=== PATIENT | female | born 1940 | race Caucasian/White ===

== ENCOUNTER 2017-02-07 16:39 | Emergency (ER) | payer MEDICARE ==
[2017-02-07 16:57] VITALS: BP 131/76
--- NOTE | 2017-02-07 17:53 | UC ---
Respiratory Complaint HPI - HPI Summary HPI Summary: 5 day history of non-productive cough, with a sense of phlegm that she cannot expectorate. Began several days post travel, without associated fever, headache , chest pain, dyspnea, headache or systemic illness. Not disruptive of sleep--actually not coughing at night. Does have a hx of chronic post nasal drainage, and uses a neti pot. Remote smoking history, stopped about 38 years ago. - History of Current Complaint Chief Complaint: UCGeneralIllness Stated Complaint: CONGESTION/COUGH Time Seen by Provider: 02/07/17 17:30 Hx Obtained From: Patient Onset/Duration: Gradual Onset, Lasting Days - 5 Timing: Intermittent Episodes - can last minutes, but not to the point of vomiting or incontinence. Severity Initially: Moderate Severity Currently: Moderate Character: Cough: Nonproductive Aggravating Factors: Nothing Alleviating Factors: Nothing Associated Signs And Symptoms: Positive: Negative - Risk Factors Pulmonary Embolism Risk Factors: Negative Cardiac Risk Factors: Hypertension Pseudomonas Risk Factors: Negative Tuberculosis Risk Factors: Negative - Allergies/Home Medications Allergies/Adverse Reactions: Allergies Allergy/AdvReac Type Severity Reaction Status Date / Time Penicillins Allergy Unknown Verified 02/07/17 16:47 Reaction Details Sulfa Antibiotics Allergy Rash Verified 09/21/16 15:07 environmental, foods Allergy Unknown Uncoded 09/21/16 15:07 Reaction Details Home Medications: Home Medications Furosemide TAB* [Lasix TAB*] 20 mg PO DAILY PRN 02/07/17 [History Confirmed ] PMH/Surg Hx/FS Hx/Imm Hx Cardiovascular History Of: Reports: Cardiac Disorders - Afib Comment Only: Hypertension - takes med for A Fib - Surgical History Surgical History: Yes Surgery Procedure, Year, and Place: partial hysterectomy, back, L shoulder, R foot, right knee total arthroplasty - Family History Known Family History: Positive: Respiratory Disease - mother had COPD - Social History Occupation: Retired Lives: Alone - Alcohol Use: Rare Substance Use Type: None Smoking Status (MU): Former Smoker When Did the Patient Quit Smoking/Using Tobacco: 1987 - Immunization History Most Recent Influenza Vaccination: 08/2016 Most Recent Pneumonia Vaccination: Fall 2015 Review of Systems Constitutional: Negative Skin: Negative Eyes: Negative ENT: Negative Respiratory: Cough Cardiovascular: Other - hx of a fib, well-controlled. Gastrointestinal: Negative Genitourinary: Negative Motor: Negative Neurovascular: Negative Musculoskeletal: Negative Neurological: Negative Psychological: Negative All Other Systems Reviewed And Are Negative: Yes Physical Exam Triage Information Reviewed: Yes Appearance: Well-Appearing Vital Signs: Initial Vital Signs Temp 97.3 F 02/07/17 16:51 Pulse 82 02/07/17 16:51 Resp 20 02/07/17 16:51 BP 131/76 02/07/17 16:51 Pulse Ox 96 02/07/17 16:51 Vital Signs Reviewed: Yes Eye Exam: Normal ENT: Positive: Pharyngeal erythema - and drainage Neck: Positive: No Lymphadenopathy Respiratory: Positive: Normal breath sounds, No respiratory distress Cardiovascular: Positive: RRR, No Murmur Psychological Exam: Normal Skin Exam: Normal UC Diagnostic Evaluation - Laboratory O2 Sat by Pulse Oximetry: 96 Respiratory Course/Dx - Course Course Of Treatment: symptomatic treatment with guiafensin and continued nasal cleansing. --discussed course of oral steroids. --reviewed no indication for xray, but if cough persists x 3 weeks, she should follow up. - Differential Dx/Diagnosis Differential Diagnosis/HQI/PQRI: Aspiration, Asthma, Laryngitis Provider Diagnoses: viral cough Discharge - Discharge Plan Condition: Stable Disposition: HOME Patient Education Materials: Acute Cough (ED) Additional Instructions: As discussed, you do not have evidence of bacterial infection. For now, begin use of guaifensin (mucinex) 600mg twice daily to promote expectoration. If the cough persists, you must follow up to consider imaging studies, but it is not uncommon for a cough to persist for 2 to 3 weeks.
== END 2017-02-07 18:16 | disposition home or self-care (01) ==
LOC: UCCORT 16:39
DX: R05 Cough (principal); I48.91 Unspecified atrial fibrillation; I10 Essential (primary) hypertension; Z88.0 Allergy status to penicillin; Z88.2 Allergy status to sulfonamides; Z87.891 Personal history of nicotine dependence
CPT/HCPCS: 99212; G0463

== ENCOUNTER 2018-12-25 14:41 | Emergency (ER) | payer MEDICARE ==
--- OUTSIDE RECORDS SUMMARY | 2018-12-25 15:27 | XMS REPORT | Continuity of Care Document ---
:1940 External Reference #:[id number] Author Name Bonita Armendariz, MSN, TEST CONDUCTOR Address [address] [place] [address] Care Team Providers Name Role Phone Ebony Abreu MD Care Team Information Track Worker Unavailable Ebony Abreu MD Primary Care Physician Unavailable Payers Type Date Identification Numbers Payment Provider Subscriber Effective: Policy Number: [id number] Medicare Abhishek Cadet 2003 PayID: [id number] [address] [place] [address] Policy Number: [id number] [facility] Abhishek Cadet PayID: [id number] [address] [place] [address] Advance Directives Description No Information Available Problems Date Description Provider Status Onset: 10/09/2018 Long-term current use of Attila Rosales M.D., Active anticoagulant [facility] Onset: 04/23/2016 Pain, unspecified Attila Rosales M.D., Active [facility] Onset: 04/23/2016 Malaise and fatigue Attila Rosales M.D., Active [facility] Onset: 09/05/2015 Dyspnea Attila Rosales M.D., Active [facility] Onset: 08/24/2015 Chronic atrial fibrillation Bonita Armendariz, Active MSN, TEST CONDUCTOR Onset: 01/19/2014 Transient cerebral ischemia Attila Rosales M.D., Active [facility] Onset: 02/06/2012 Hyperlipidemia Attila Rosales M.D., Active [facility] Onset: 02/06/2012 Atrial fibrillation Attila Rosales M.D., Active [facility] Family History Date Family Member(s) Problem(s) Comments : (age 82 Father due to CVA Years) Mother due to CAD () - was told by routine ECG in her 60s that she had an HI Number of Children 2 living & well Number of Siblings Siblings: 3 living & well Social History Type Date Description Comments Sex Unknown Marital Status lives alone Lives With Negative For Alone Diet Patient is on a low fat diet Low sodium Occupation Retired Tobacco Use Start: Unknown End: Quit Unknown Cigarette Use Pack Years - 25 Smoking Status Reviewed: 10/09/18 Quit ETOH Use Rarely consumes alcohol Enjoy Exercising Enjoys exercising water aerobics Allergies, Adverse Reactions, Alerts Date Description Reaction Status Severity Comments 05/24/2009 Sulfa Drugs Active Amiodarone HCL Active Lipitor Active myalgia Simvastatin Active myalgia Medications Medication Date Status Form Strength Qnty SIG Indications Ordering Provider Eliquis 10/09/ Active Tablets 2.5mg 60tab take one [id number] tablet by Attila twice a MStanley Rondon, day [facility] Diltia XT 09/16/ Active Caps ER 240mg 30cap 1 po qd [id number] 24HR s Attila M.D., [facility] Digoxin 06/29/ Active Tablets 0.125mg 90tab 1 po qd [id number] s Attila M.D., [facility] Fish Oil / Active Capsules 500mg 1 po qd Unknown 0000 Centrum / Active Tablets 1 po qd Unknown Silver 0000 Calcium + D / Active Tablets 600mg 1 po qd Unknown 0000 Vitamin D-3 / Active Tablets 2000Unit 1 po qd Bobby , Attila Hanna M.D., [facility] Furosemide / Active Tablets 20mg 30tab 1 po qd prn Unknown 0000 s edema Toprol XL / Active Tablets ER 100mg 1 by mouth in Unknown 0000 24HR am 1/2 in pm Aspirin 81 / Active Chewtabs 81mg 1 by mouth Unknown Low Dose 0000 every day Aspirin 06/25/ Hx Tablets 1 po qd Marcello, 2013 Bonita Rankin , MSN, TEST CONDUCTOR Pradaxa 12/28/ Hx Capsules 150mg 180ca Take One Bobby 2010 ps Capsule By , Attila Mouth Twice Stanley Hanna, Daily [facility] Pradaxa 12/14/ Hx Capsules 150mg 60cap 1 cap by Marcello, 2010 - s mouth twice a Bonita day Massiel 2010 , MSN, TEST CONDUCTOR Lovenox 12/07/ Hx Solution 80mg/0.8ML 12uni 80 mg Bobby 2010 ts subcutaneous , Attila twice a day Stanley Hanna, [facility] Simvastatin 12/29/ Hx Tablets 20mg 90tab 1 po qd Bobby 2009 s Attila M.D., [facility] Coumadin 09/16/ Hx Tabs 4mg 30tab Uad - Use as Bobby 2008 - s Attila Cornejo 05/11/ Stanley Hanna, 2009 [facility] Toprol XL 07/01/ Hx Tablets ER 100mg 180ta 1 po bid Bobby 2008 - 24HR Attila may 10/19/ Stanley Hanna, 2009 [facility] Crestor 06/29/ Hx Tablets 10mg 90tab 1 po qhs Bobby 2008 - s Attila Stanley Hanna, 2009 [facility] Amiodarone 06/15/ Hx Tablets 200mg 90tab 1 po qd Bobby HCL 2008 - s Attila Stanley Hanna, 2008 [facility] Aspirin 06/15/ Hx Tablets 325mg 1 po qd Bobby 2008 - Attila 06/25/ Stanley Hanna, 2013 [facility] Zetia / Hx Tablets 10mg 90tab 1 po qd Unknown 0000 - s 2008 Coumadin / Hx Tablets 5mg 1 tab po as Unknown 0000 - directed 2008 Coumadin / Hx Tabs 5mg 30tab Take One Armendariz, s Tablet By Bonita Mouth as Massiel Cornjeo , MSN, TEST CONDUCTOR Coumadin / Hx Tablets 7.5mg 30tab po qd Unknown 0000 s Toprol XL / Hx Tablets ER 100mg 30tab 1 po bid Jagjitko 0000 24HR s Attila M.D., [facility] Aspirin / Hx Tablets 325mg 1 by mouth Unknown 0000 - every day 2017 Medications Administered in Office Medication Date Status Form Strength Qnty SIG Indications Ordering Provider Depomedrol Administered Injection Bradford, 40mg/1cc 009 Day Hopkins MD (methylprednis olone acetate) Immunizations Description No Information Available Vital Signs Date Vital Result Comment 11/26/2018 3:28pm BP Systolic Sitting Left Arm 110 mmHg BP Diastolic Sitting Left Arm 60 mmHg Heart Rate 73 /min Respiratory Rate 16 /min Height 65 inches 5'5" Weight 157.00 lb BMI (Body Mass Index) 26.1 kg/m2 BSA (Body Surface Area) 1.78 m2 [place] body weight in kilograms 57 kg O2 Saturation Level with Exercise 96 % 10/09/2018 3:38pm BP Systolic Sitting Left Arm 122 mmHg BP Diastolic Sitting Left Arm 62 mmHg Heart Rate 68 /min Respiratory Rate 18 /min Height 65 inches 5'5" Weight 154.00 lb BMI (Body Mass Index) 25.6 kg/m2 BSA (Body Surface Area) 1.77 m2 [place] body weight in kilograms 57 kg O2 % BldC Oximetry 97 % 06/04/2018 10:14am BP Systolic Sitting Left Arm 128 mmHg BP Diastolic Sitting Left Arm 74 mmHg Heart Rate 68 /min Respiratory Rate 16 /min Height 65 inches 5'5" Weight 163.00 lb BMI (Body Mass Index) 27.1 kg/m2 BSA (Body Surface Area) 1.81 m2 [place] body weight in kilograms 57 kg O2 Saturation Level with Exercise 97 % 06/10/2017 10:52am BP Systolic Sitting Left Arm 112 mmHg BP Diastolic Sitting Left Arm 60 mmHg Heart Rate 60 /min Respiratory Rate 16 /min Height 65 inches 5'5" Weight 160.00 lb BMI (Body Mass Index) 26.6 kg/m2 BSA (Body Surface Area) 1.80 m2 [place] body weight in kilograms 57 kg 12/07/2016 10:40am BP Systolic Sitting Left Arm 10 mmHg BP Diastolic Sitting Left Arm 68 mmHg Heart Rate 69 /min Respiratory Rate 16 /min Height 65 inches 5'5" Weight 164.00 lb BMI (Body Mass Index) 27.3 kg/m2 BSA (Body Surface Area) 1.82 m2 04/23/2016 3:27pm BP Systolic Sitting Left Arm 102 mmHg BP Diastolic Sitting Left Arm 68 mmHg Heart Rate 72 /min Respiratory Rate 16 /min Height 65 inches 5'5" Weight 167.00 lb BMI (Body Mass Index) 27.8 kg/m2 BSA (Body Surface Area) 1.83 m2 09/05/2015 9:39am BP Systolic Sitting Left Arm 110 mmHg BP Diastolic Sitting Left Arm 72 mmHg Heart Rate 72 /min Respiratory Rate 16 /min Height 65 inches 5'5" Weight 172.00 lb BMI (Body Mass Index) 28.6 kg/m2 BSA (Body Surface Area) 1.86 m2 08/24/2015 11:20am BP Systolic Sitting Left Arm 118 mmHg BP Diastolic Sitting Left Arm 62 mmHg Heart Rate 64 /min Respiratory Rate 12 /min Height 65 inches 5'5" Weight 170.00 lb BMI (Body Mass Index) 28.3 kg/m2 BSA (Body Surface Area) 1.85 m2 02/18/2015 1:52pm BP Systolic Sitting Right Arm 110 mmHg BP Diastolic Sitting Right Arm 62 mmHg Heart Rate 66 /min Respiratory Rate 16 /min Height 65 inches 5'5" Weight 168.00 lb BMI (Body Mass Index) 28.0 kg/m2 BSA (Body Surface Area) 1.84 m2 01/19/2014 3:07pm BP Systolic Sitting Right Arm 118 mmHg BP Diastolic Sitting Right Arm 62 mmHg Heart Rate 72 /min Respiratory Rate 18 /min Height 65 inches 5'5" Weight 171.00 lb BMI (Body Mass Index) 28.5 kg/m2 BSA (Body Surface Area) 1.85 m2 06/30/2012 11:38am BP Systolic Sitting Right Arm 112 mmHg BP Diastolic Sitting Right Arm 70 mmHg Heart Rate 82 /min Respiratory Rate 16 /min Height 65 inches 5'5" Weight 171.00 lb BMI (Body Mass Index) 28.5 kg/m2 06/27/2012 10:37am Height 65 inches 5'5" 02/06/2012 11:03am BP Systolic Sitting Right Arm 118 mmHg BP Diastolic Sitting Right Arm 62 mmHg Heart Rate 62 /min Respiratory Rate 16 /min Height 65 inches 5'5" Weight 173.00 lb BMI (Body Mass Index) 28.8 kg/m2 01/29/2011 1:12pm BP Systolic Sitting Left Arm 102 mmHg Heart Rate 60 /min irregular Respiratory Rate 16 /min Height 65 inches 5'5" Weight 169.00 lb BMI (Body Mass Index) 28.1 kg/m2 07/25/2010 10:35am Heart Rate 66 /min Respiratory Rate 14 /min Weight 172.00 lb 04/13/2010 1:31pm Heart Rate 76 /min Irregular Respiratory Rate 16 /min Weight 179.00 lb 10/13/2009 1:20pm Heart Rate 84 /min Regular Respiratory Rate 16 /min Weight 180.00 lb 09/16/2009 1:50pm Heart Rate 80 /min Irregular Respiratory Rate 16 /min Weight 178.00 lb 08/16/2009 9:24am Heart Rate 68 /min Irregular Respiratory Rate 18 /min Weight 177.00 lb 06/29/2009 12:06pm Heart Rate 72 /min Irregular Respiratory Rate 16 /min Weight 175.00 lb 05/24/2009 8:57am Height 64 inches 5'4" Weight 174.00 lb BMI (Body Mass Index) 29.9 kg/m2 Results Test Date Facility Test Result H/L Range Note CBC 09/25/2018 [facility] White Blood Count 8.1 K/uL N 3.1-10.7 1 [address] [place] [address] [phone] Red Blood Count 3.97 M/uL N 3.90-5.40 Hemoglobin 12.3 gm/dL N 11.6-15.8 Hematocrit 36.0 % N 36.0-46.1 Mean Cell Volume 90.7 fl N 80.9-99.0 Mean Corpuscular HGB 31.0 pg N 25.9-32.7 Mean Corpuscular HGB Conc 34.2 g/dL N 30.8-34.3 Platelet Count 176 K/uL N 155-360 Red Cell Distri Width %CV 13.7 % N 11.7-14.4 Mean Platelet Volume 11.0 fL N 8.9-12.4 Basic Metabolic Panel 09/25/2018 [facility] Glucose 96 mg/dL N 74-106 [address] [place] [address] [phone] BUN 11 mg/dL N 7-18 Creatinine 0.7 mg/dL N 0.6-1.3 Glom Filtration Rate, Estimate >60 mL/min >60 If >60 mL/min >60 2 BUN/Creat 15.7 ratio Sodium 141 mmol/L N 136-145 Potassium 3.7 mmol/L N 3.5-5.1 Chloride 108 mmol/L High 98-107 Carbon Dioxide 27 mmol/L N 21-32 Anion Gap 6 mEq/L Low 8-16 Calcium 8.3 mg/dL Low 8.5-10.1 Comprehensive Metabolic 09/24/2018 [facility] Glucose 105 mg/dL N 74-106 Panel [address] [place], [place] [id number] [phone] BUN 14 mg/dL N 7-18 Creatinine 0.9 mg/dL N 0.6-1.3 Glom Filtration Rate, Estimate >60 mL/min >60 If >60 mL/min >60 3 BUN/Creat 15.5 ratio Sodium 138 mmol/L N 136-145 Potassium 4.0 mmol/L N 3.5-5.1 Chloride 105 mmol/L N 98-107 Carbon Dioxide 26 mmol/L N 21-32 Anion Gap 7 mEq/L Low 8-16 Calcium 8.8 mg/dL N 8.5-10.1 Total Protein 7.6 g/dL N 6.4-8.2 Albumin 3.6 g/dL N 3.4-5.0 Globulin 4.0 g/dL N 1.9-4.3 Alb/Glob 0.9 ratio Bilirubin,Total 1.2 mg/dL High 0.2-1.0 Sgot/Ast 38 U/L High 15-37 SGPT/Alt 69 U/L N 12-78 Alkaline Phosphatase 90 U/L N 45-117 Laboratory test finding 09/24/2018 [facility] Lipase 91 U/L N 56-289 [address] [place] [address] [phone] Digoxin 0.6 ng/mL Low 0.8-1.9 CBS W/Automated Diff 03/20/2016 N2N/CCD Import Bas% 1.2 % High 0.0-1.1 Baso # 0.09 K/uL 0.0-0.1 Eo% 6.1 % 0.0-6.6 Eos # 0.47 K/uL 0.0-0.5 Hematocrit 42.5 % 36.0-46.1 Hemoglobin 14.4 gm/dL 11.6-15.8 Lymph # 2.30 K/uL 1.8-7.0 Lymph % 29.6 % 17.0-46.1 Mean Cell Volume 89.7 fl 80.9-99.0 Mean Corpuscular HGB 30.4 pg 25.9-32.7 Mean Corpuscular HGB Conc 33.9 g/dL 30.8-34.3 Mean Platelet Volume 11.2 fL 8.9-12.4 Cavalier # 0.69 K/uL 0.3-0.9 Cav[place]ier % 8.9 % 4.3-13.2 Neut# 4.21 K/uL 1.8-7.0 Neut% 54.2 % 40.4-72.8 Platelet Count 232 K/uL 155-360 Red Blood Count 4.74 M/uL 3.90-5.40 Red Cell Distri Width %CV 14.4 % 11.7-14.4 Red Cell Distri Width SD 45.5 fl 3-47 White Blood Count 7.8 K/uL 3.1-10.7 Comprehensive Metabolic Panel 03/20/2016 N2N/CCD Import Alb/Glob 0.9 ratio Albumin 3.6 g/dL 3.4-5.0 Alkaline Phosphatase 85 U/L 45-117 Anion Gap 8 mEq/L 8-16 BUN 13 mg/dL 7-18 BUN/Creat 14.4 ratio Bilirubin,Total 1.3 mg/dL High 0.2-1.0 Calcium 8.9 mg/dL 8.5-10.1 Carbon Dioxide 26 mmol/L 21-32 Chloride 104 mmol/L 98-107 Creatinine 0.9 mg/dL 0.6-1.3 Globulin 4.2 g/dL 1.9-4.3 Glom Filtration Rate, Estimate >60 mL/min >60 Glucose 126 mg/dL High 74-106 4 If >60 mL/min >60 Potassium 3.9 mmol/L 3.5-5.1 SGPT/Alt 86 U/L High 12-78 Sgot/Ast 62 U/L High 15-37 Sodium 138 mmol/L 136-145 Total Protein 7.8 g/dL 6.4-8.2 Glycohemoglobin A1c 03/20/2016 N2N/CCD Import Glycohemoglobin (A1c) 5.4 % 4.2-6.3 5 eAG 108 mg/dL LDL Cholesterol Profile 03/20/2016 N2N/CCD Import Cholesterol 215 mg/dL High <200 6 HDL Cholesterol 36 mg/dL Low >40 7 LDL-Cholesterol 124 mg/dL < 100 8 Triglycerides 275 mg/dL High <150 9 Laboratory test 03/20/2016 N2N/CCD Import Bilirubin,Direct 0.2 mg/dL 0.0 -0.2 finding Free T4 1.25 ng/dL 0.76-1.46 Thyroid Stim Hormone 4.93 uIU/mL High 0.30-4.20 Protime 12/14/2010 [facility] Protime 15.0 seconds 12.2-15.2 [address] [place] [address] [phone] Inr 1.1 0.9-1.1 10 Protime 12/07/2010 [facility] Protime 21.0 seconds High 12.2-15.2 [address] [place] [address] [phone] Inr 1.7 High 0.9-1.1 11 Protime 11/13/2010 [facility] Protime 24.2 seconds High 11.7-15.1 [address] [place] [address] [phone] Inr 2.1 High 0.8-1.2 12 Protime 10/16/2010 [facility] Protime 25.7 seconds High 11.7-15.1 [address] [place] [address] [phone] Inr 2.2 High 0.8-1.2 13 Protime 09/18/2010 [facility] Protime 24.2 seconds High 11.7-15.1 [address] [place] [address] [phone] Inr 2.1 High 0.8-1.2 14 Liver Function Tests 09/05/2010 [facility] Total Protein 7.1 g/dL 6.3-8.0 [address] [place] [address] [phone] Albumin 3.7 g/dL 3.5-5.0 Bilirubin,Total 1.0 mg/dL 0.2-1.2 Bilirubin,Direct 0.2 mg/dL 0.1-0.4 Bilirubin,Indirect 0.8 mg/dL 0.0-0.9 Sgot/Ast 41 U/L High 16-40 SGPT/Alt 71 U/L High 30-65 Alkaline Phosphatase 105 U/L 50-136 Globulin 3.4 gm/dL 1.9-4.3 Alb/Glob 1.1 LDL Cholesterol 09/05/2010 [facility] Cholesterol 235 mg/dL High 120-[address] [place], [place] [id number] [phone] Triglycerides 192 mg/dL 0-210 HDL Cholesterol 40 mg/dL 32-96 LDL-Cholesterol 157 mg/dL 62-185 CBS W/Automated Diff 09/05/2010 [facility] White Blood 6.2 K/uL 3.1-10.[address] [place] [place] [address] [phone] Red Blood Count 4.78 M/uL 3.90-5.40 Hemoglobin 14.4 gm/dL 11.6-15.8 Hematocrit 42.6 % 36.0-46.1 Mean Cell Volume 89.1 fl 80.9-99.0 Mean Corpuscular HGB 30.1 pg 25.9-32.7 Mean Corpuscular HGB Conc 33.8 g/dL 30.8-34.3 Platelet Count 214 K/uL 155-360 Red Cell Distri Width %CV 13.8 % 11.7-14.4 Mean Platelet Volume 11.5 fL 8.9-12.4 Neut% 53.1 % 40.4-72.8 Lymph % 30.6 % 17.0-46.1 Cavalier % 9.2 % 4.3-13.2 Eo% 5.5 % 0.0-6.6 Bas% 1.6 % High 0.0-1.1 Neut# 3.3 K/uL 1.0-7.0 Lymph # 1.9 K/uL 0.8-3.4 [place]ier # 0.6 K/uL 0.3-0.9 Eos # 0.3 K/uL 0.0-0.5 Baso # 0.1 K/uL 0.0-0.1 Red Cell Distri Width SD 43.9 fl 3-47 Laboratory test 09/05/2010 [facility] Thyroid Stim 2.25 uIU/mL 0.49-4.67 15 finding [address] [place] [address] [phone] Free T4 1.01 ng/dL 0.71-1.85 16 Protime 08/17/2010 [facility] Protime 27.8 seconds High 11.7-15.1 [address] [place] [address] [phone] Inr 2.4 High 0.8-1.2 17 Protime 07/27/2010 [facility] Protime 31.0 seconds High 11.7-15.1 [address] [place] [address] [phone] Inr 2.8 High 0.8-1.2 18 Protime 07/13/2010 [facility] Protime 23.4 seconds High 11.7-15.1 [address] [place] [address] [phone] Inr 2.0 High 0.8-1.2 19 Protime 07/06/2010 [facility] Protime 41.8 seconds High 11.7-15.1 [address] [place] [address] [phone] Inr 4.0 High 0.8-1.2 20 Protime 06/21/2010 [facility] Protime 28.9 seconds High 11.7-15.1 [address] [place] [address] [phone] Inr 2.6 High 0.8-1.2 21 Protime 06/01/2010 [facility] Protime 21.2 seconds High 11.7-15.1 [address] [place] [address] [phone] Inr 1.8 High 0.8-1.2 22 Laboratory test 06/01/2010 [facility] LDL Cholesterol (SEE NOTE) 23 finding [address] [place] [address] [phone] Vitamin D,25-Hydroxy 30.3 ng/mL Low 32.0-100.0 24 Protime 05/18/2010 [facility] Protime 21.5 seconds High 11.7-15.1 [address] [place] [address] [phone] Inr 1.8 High 0.8-1.2 25 Protime 05/04/2010 [facility] Protime 21.4 seconds High 11.7-15.1 [address] [place] [address] [phone] Inr 1.8 High 0.8-1.2 26 Protime 04/19/2010 [facility] Protime 22.8 seconds High 11.7-15.1 [address] [place] [address] [phone] Inr 1.9 High 0.8-1.2 27 Protime 04/04/2010 [facility] Protime 23.4 seconds High 11.7-15.1 [address] [place] [address] [phone] Inr 2.0 High 0.8-1.2 28 Protime 03/20/2010 [facility] Protime 23.8 seconds High 11.7-15.1 [address] [place] [address] [phone] Inr 2.0 High 0.8-1.2 29 Protime 03/06/2010 [facility] Protime 22.8 seconds High 11.7-15.1 [address] [place] [address] [phone] Inr 1.9 High 0.8-1.2 30 Laboratory test finding 02/21/2010 [facility] CK 119 U/L 26-190 [address] [place] [address] [phone] Vitamin D,25-Hydroxy 25.1 ng/mL Low 32.0-100.0 31 LDL Cholesterol 02/21/2010 [facility] Cholesterol 145 mg/dL 120-200 Profile [address] [place], [place] [address] [phone] Triglycerides 156 mg/dL 0-210 HDL Cholesterol 41 mg/dL 32-96 LDL-Cholesterol 73 mg/dL 62-185 Liver Function Tests 02/21/2010 [facility] Total Protein 7.1 g/dL 6.3-8.0 [address] [place], [place] [address] [phone] Albumin 3.8 g/dL 3.5-5.0 Bilirubin,Total 1.4 mg/dL High 0.2-1.2 Bilirubin,Direct 0.3 mg/dL 0.1-0.4 Bilirubin,Indirect 1.1 mg/dL High 0.0-0.9 Sgot/Ast 60 U/L High 16-40 SGPT/Alt 106 U/L High 30-65 Alkaline Phosphatase 101 U/L 50-136 Globulin 3.3 gm/dL 1.9-4.3 Alb/Glob 1.2 Protime 02/21/2010 [facility] Protime 20.5 seconds High 11.7-15.1 [address] [place], [place] [address] [phone] Inr 1.7 High 0.8-1.2 32 Protime 02/06/2010 [facility] Protime 19.7 seconds High 11.7-15.1 [address] [place], [place] [address] [phone] Inr 1.6 High 0.8-1.2 33 Protime 01/23/2010 [facility] Protime 20.6 seconds High 11.7-15.1 [address] [place], [place] [address] [phone] Inr 1.7 High 0.8-1.2 34 Protime 12/27/2009 [facility] Protime 21.6 seconds High 11.7-15.1 [address] [place], [place] [address] [phone] Inr 1.8 High 0.8-1.2 35 Protime 11/28/2009 [facility] Protime 23.2 seconds High 11.8-14.6 36 [address] [place], [place] [address] [phone] Inr 2.1 High 0.9-1.1 37 Liver Function Tests 11/28/2009 [facility] Total Protein 7.7 g/dL 6.3-8.0 [address] [place] [address] [phone] Albumin 4.1 g/dL 3.5-5.0 Bilirubin,Total 1.0 mg/dL 0.2-1.2 Bilirubin,Direct 0.2 mg/dL 0.1-0.4 Bilirubin,Indirect 0.8 mg/dL 0.0-0.9 Sgot/Ast 65 U/L High 16-40 SGPT/Alt 94 U/L High 30-65 Alkaline Phosphatase 107 U/L 50-136 Globulin 3.6 gm/dL 1.9-4.3 Alb/Glob 1.1 38 LDL Cholesterol 11/28/2009 [facility] Cholesterol 146 mg/dL 120-200 Profile [address] [place] [address] [phone] Triglycerides 202 mg/dL 0-210 HDL Cholesterol 43 mg/dL 32-96 LDL-Cholesterol 63 mg/dL 62-185 Laboratory test 11/28/2009 [facility] CK 94 U/L 26-190 39 finding [address] [place] [address] [phone] Protime 11/02/2009 [facility] Protime 21.4 seconds High 11.8-14.6 40 [address] [place] [address] [phone] Inr 1.9 High 0.9-1.1 41 Protime 10/04/2009 [facility] Protime 23.3 seconds High 11.8-14.6 [address] [place] [address] [phone] Inr 2.1 High 0.9-1.1 42 Protime 09/07/2009 [facility] Protime 29.1 seconds High 11.8-14.6 [address] [place] [address] [phone] Inr 2.7 High 0.9-1.1 43 Basic Metabolic Panel 09/07/2009 [facility] Glucose 121 mg/dL High 76-115 [address] [place] [address] [phone] BUN 16 mg/dL 5-23 Creatinine 0.8 mg/dL 0.5-1.4 Glom Filtration Rate, Estimate >60 mL/min >60 If >60 mL/min >60 44 BUN/Creat 20.0 Sodium 137 mEq/L 136-145 Potassium 4.2 mEq/L 3.5-5.1 Chloride 103 mEq/L 98-107 Carbon Dioxide 26 mEq/L 21-32 Anion Gap 12 mEq/L 8-16 Calcium 9.0 mg/dL 8.5-10.1 CBC 09/07/2009 [facility] White Blood Count 9.3 K/uL 3.1-10.7 [address], [place] [address] [phone] Red Blood Count 4.87 M/uL 3.90-5.40 Hemoglobin 14.5 gm/dL 11.6-15.8 Hematocrit 43.5 % 36.0-46.1 Mean Cell Volume 89.3 fl 80.9-99.0 Mean Corpuscular HGB 29.8 pg 25.9-32.7 Mean Corpuscular HGB Conc 33.3 g/dL 30.8-34.3 Platelet Count 222 K/uL 155-360 Red Cell Distri Width %CV 14.9 % High 11.7-14.4 Mean Platelet Volume 10.8 fL 8.9-12.4 Laboratory test 08/22/2009 [facility] CBC/Manual Canceled By [address] Differential Lab [place], [place] [id number] [phone] Protime 08/22/2009 [facility] Protime 24.9 seconds High 11.[address] [place] [address] 6 [phone] Inr 2.2 High 0.9-1.1 46 CBS W/Automated Diff 08/22/2009 [facility] White Blood 9.4 K/uL 3.1-10.[address] Count [place], [place] [address] [phone] Red Blood Count 4.98 M/uL 3.90-5.40 Hemoglobin 15.2 gm/dL 11.6-15.8 Hematocrit 44.0 % 36.0-46.1 Mean Cell Volume 88.4 fl 80.9-99.0 Mean Corpuscular HGB 30.5 pg 25.9-32.7 Mean Corpuscular HGB Conc 34.5 g/dL High 30.8-34.3 Platelet Count 225 K/uL 155-360 Red Cell Distri Width %CV 14.9 % High 11.7-14.4 Mean Platelet Volume 11.5 fL 8.9-12.4 Neut% 60.5 % 40.4-72.8 Lymph % 22.6 % 17.0-46.1 Cavalier % 10.1 % 4.3-13.2 Eo% 6.0 % 0.0-6.6 Bas% 0.8 % 0.0-1.1 Neut# 5.7 K/uL 1.0-7.0 Lymph # 2.1 K/uL 0.8-3.4 Cavalier # 1.0 K/uL High 0.3-0.9 Eos # 0.6 K/uL High 0.0-0.5 Baso # 0.1 K/uL 0.0-0.1 Red Cell Distri Width SD 47 fl 3-47 Laboratory test 08/22/2009 [facility] Glycohemoglobin A1c 5.6 % 4.8-6.0 47 finding [address] [place], [place] [id number] [phone] Thyroid Stim Hormone 5.50 uIU/mL High 0.49-4.67 Free T4 1.10 ng/dL 0.71-1.85 LDL Cholesterol 08/22/2009 [facility] Cholesterol 125 mg/dL 120-200 Profile [address] [place] [address] [phone] Triglycerides 166 mg/dL 0-210 HDL Cholesterol 39 mg/dL 32-96 LDL-Cholesterol 53 mg/dL Low 62-185 Comprehensive Metabolic 08/22/2009 [facility] Glucose 101 mg/dL 76-115 Panel [address] [place] [address] [phone] BUN 12 mg/dL 5-23 Creatinine 1.1 mg/dL 0.5-1.4 Glom Filtration Rate, Estimate 52 mL/min >60 If >60 mL/min >60 48 BUN/Creat 10.9 Sodium 141 mEq/L 136-145 Potassium 4.4 mEq/L 3.5-5.1 Chloride 103 mEq/L 98-107 Carbon Dioxide 23 mEq/L 21-32 Anion Gap 19 mEq/L High 8-16 Calcium 8.7 mg/dL 8.5-10.1 Total Protein 7.5 g/dL 6.3-8.0 Albumin 3.9 g/dL 3.5-5.0 Globulin 3.6 gm/dL 1.9-4.3 Alb/Glob 1.1 Bilirubin,Total 1.4 mg/dL High 0.2-1.2 Sgot/Ast 44 U/L High 16-40 SGPT/Alt 70 U/L High 30-65 Alkaline Phosphatase 92 U/L 50-136 Liver Function Tests 08/22/2009 [facility] Total Protein 7.5 g/dL 6.3-8.0 [address] [place] [address] [phone] Albumin 3.9 g/dL 3.5-5.0 Bilirubin,Total 1.4 mg/dL High 0.2-1.2 Bilirubin,Direct 0.3 mg/dL 0.1-0.4 Bilirubin,Indirect 1.1 mg/dL High 0.0-0.9 Sgot/Ast 44 U/L High 16-40 SGPT/Alt 70 U/L High 30-65 Alkaline Phosphatase 92 U/L 50-136 Globulin 3.6 gm/dL 1.9-4.3 Alb/Glob 1.1 Protime 07/21/2009 [facility] Protime 25.4 seconds High 11.8-14.6 49 [address] [place] [address] [phone] Inr 2.3 High 0.9-1.1 50 Protime 07/11/2009 [facility] Protime 31.6 seconds High 11.8-14.6 51 [address] [place] [address] [phone] Inr 3.0 High 0.9-1.1 52 Protime 06/27/2009 [facility] Protime 27.7 seconds High 11.8-14.6 [address] [place], [place] [id number] [phone] Inr 2.6 High 0.9-1.1 53 Protime 06/20/2009 [facility] Inr 2.2 High 0.9-1.1 54, 55 [address] [place] [address] [phone] Protime 24.6 seconds High 11.8-14.6 1 ABDOMINAL PAIN 2 Note: Persistent reduction for 3 months or more in an eGFR <60 mL/min/1.73 m2 defines CKD. Patients with eGFR values >/=60 mL/min/1.73 m2 may also have CKD if evidence of persistent proteinuria is present. The original MDRD equation for estimated GFR is not valid for patients less than 18 years of age. Additional information may be found at www.kdoqi.org. 3 Note: Persistent reduction for 3 months or more in an eGFR <60 mL/min/1.73 m2 defines CKD. Patients with eGFR values >/=60 mL/min/1.73 m2 may also have CKD if evidence of persistent proteinuria is present. The original MDRD equation for estimated GFR is not valid for patients less than 18 years of age. Additional information may be found at www.kdoqi.org. 4 Note: Persistent reduction for 3 months or more in an eGFR <60 mL/min/1.73 m2 defines CKD. Patients with eGFR values >/=60 mL/min/1.73 m2 may also have CKD if evidence of persistent proteinuria is present. The original MDRD equation for estimated GFR is not valid for patients less than 18 years of age. Additional information may be found at www.kdoqi.org. 5 Elevated levels of HbA1c suggest the need for more aggressive treatment of glycemia. The [place] [employer] recommends that a primary goal of therapy should be a HbA1c of <7% and that physicians should re-evaluate the treatment regimen in patients with HbA1c values consistently >8%. 6 Reference Guidelines*: Desirable: ........... < 200 mg/dL Borderline High: ..... 200-239 mg/dL High: ................ >=240 mg/dL * The National Cholesterol Education Program (NCEP) 7 Reference Guidelines*: Low HDL: ..... < 40 mg/dL Normal: ..... 40-60 mg/dL Desirable: ... > 60 mg/dL *The National Cholesterol Education Program(NCEP) 8 Reference Guidelines*: Optimal:........... <100 mg/dL Near Optimal....... 100-129 mg/dL Borderline High.... 130-159 mg/dL High............... 160-189 mg/dL Very High.......... >=190 mg/dL * Source: National Cholesterol Education Program (NCEP) 9 Reference Guidelines*: Normal: ............. < 150 mg/dL Borderline High: .... 150-199 mg/dL High: ............... 200-499 mg/dL Very High: .......... > 500 mg/dL * Source: National Cholesterol Education Program (NCEP) 10 THERAPEUTIC INR RANGE: 2.0 - 3.0 DVT, Pulmonary embolus, prophylaxis against venous thrombosis or systemic embolization in high risk patients. 2.5 - 3.5 Mechanical heart valves 11 THERAPEUTIC INR RANGE: 2.0 - 3.0 DVT, Pulmonary embolus, prophylaxis against venous thrombosis or systemic embolization in high risk patients. 2.5 - 3.5 Mechanical heart valves 12 THERAPEUTIC INR RANGE: 2.0 - 3.0 DVT, Pulmonary embolus, prophylaxis against venous thrombosis or systemic embolization in high risk patients. 2.5 - 3.5 Mechanical heart valves 13 THERAPEUTIC INR RANGE: 2.0 - 3.0 DVT, Pulmonary embolus, prophylaxis against venous thrombosis or systemic embolization in high risk patients. 2.5 - 3.5 Mechanical heart valves 14 THERAPEUTIC INR RANGE: 2.0 - 3.0 DVT, Pulmonary embolus, prophylaxis against venous thrombosis or systemic embolization in high risk patients. 2.5 - 3.5 Mechanical heart valves 15 QUERY: @[facility] Pat ID: [id number] QUERY: @[facility] Req #: [id number] QUERY: @[facility] Pat ID: [id number] QUERY: @[facility] Req #: [id number] 17 THERAPEUTIC INR RANGE: 2.0 - 3.0 DVT, Pulmonary embolus, prophylaxis against venous thrombosis or systemic embolization in high risk patients. 2.5 - 3.5 Mechanical heart valves 18 THERAPEUTIC INR RANGE: 2.0 - 3.0 DVT, Pulmonary embolus, prophylaxis against venous thrombosis or systemic embolization in high risk patients. 2.5 - 3.5 Mechanical heart valves 19 THERAPEUTIC INR RANGE: 2.0 - 3.0 DVT, Pulmonary embolus, prophylaxis against venous thrombosis or systemic embolization in high risk patients. 2.5 - 3.5 Mechanical heart valves 20 THERAPEUTIC INR RANGE: 2.0 - 3.0 DVT, Pulmonary embolus, prophylaxis against venous thrombosis or systemic embolization in high risk patients. 2.5 - 3.5 Mechanical heart valves 21 THERAPEUTIC INR RANGE: 2.0 - 3.0 DVT, Pulmonary embolus, prophylaxis against venous thrombosis or systemic embolization in high risk patients. 2.5 - 3.5 Mechanical heart valves 22 THERAPEUTIC INR RANGE: 2.0 - 3.0 DVT, Pulmonary embolus, prophylaxis against venous thrombosis or systemic embolization in high risk patients. 2.5 - 3.5 Mechanical heart valves 23 QUERY: IS THE PATIENT FASTING? Y QUERY: FASTING PROFILE INCLUDES CHOL, TRIG, HDL, + LDL 24 Recent studies consider the lower limit of 32.0 ng/mL to be a threshold for optimal health. [facility]. J Nutr. 2004;135(2):317-22. Performed at: - [facility] [id number] Industrial Safety And Health Manager: Brent Hinojosa MD, Phone: [phone] 25 THERAPEUTIC INR RANGE: 2.0 - 3.0 DVT, Pulmonary embolus, prophylaxis against venous thrombosis or systemic embolization in high risk patients. 2.5 - 3.5 Mechanical heart valves 26 THERAPEUTIC INR RANGE: 2.0 - 3.0 DVT, Pulmonary embolus, prophylaxis against venous thrombosis or systemic embolization in high risk patients. 2.5 - 3.5 Mechanical heart valves 27 THERAPEUTIC INR RANGE: 2.0 - 3.0 DVT, Pulmonary embolus, prophylaxis against venous thrombosis or systemic embolization in high risk patients. 2.5 - 3.5 Mechanical heart valves 28 THERAPEUTIC INR RANGE: 2.0 - 3.0 DVT, Pulmonary embolus, prophylaxis against venous thrombosis or systemic embolization in high risk patients. 2.5 - 3.5 Mechanical heart valves 29 THERAPEUTIC INR RANGE: 2.0 - 3.0 DVT, Pulmonary embolus, prophylaxis against venous thrombosis or systemic embolization in high risk patients. 2.5 - 3.5 Mechanical heart valves 30 THERAPEUTIC INR RANGE: 2.0 - 3.0 DVT, Pulmonary embolus, prophylaxis against venous thrombosis or systemic embolization in high risk patients. 2.5 - 3.5 Mechanical heart valves 31 Recent studies consider the lower limit of 32.0 ng/mL to be a threshold for optimal health. [facility]. J Nutr. 2004;135(2):317-22. Performed at: - [facility] [id number] Industrial Safety And Health Manager: Brent Hinojosa MD 32 THERAPEUTIC INR RANGE: 2.0 - 3.0 DVT, Pulmonary embolus, prophylaxis against venous thrombosis or systemic embolization in high risk patients. 2.5 - 3.5 Mechanical heart valves 33 THERAPEUTIC INR RANGE: 2.0 - 3.0 DVT, Pulmonary embolus, prophylaxis against venous thrombosis or systemic embolization in high risk patients. 2.5 - 3.5 Mechanical heart valves 34 THERAPEUTIC INR RANGE: 2.0 - 3.0 DVT, Pulmonary embolus, prophylaxis against venous thrombosis or systemic embolization in high risk patients. 2.5 - 3.5 Mechanical heart valves 35 THERAPEUTIC INR RANGE: 2.0 - 3.0 DVT, Pulmonary embolus, prophylaxis against venous thrombosis or systemic embolization in high risk patients. 2.5 - 3.5 Mechanical heart valves 36 QUERY: LIVER=TBILI,DBILI,IBILI,SGOT,SGPT,ALK PHOS,ALBUMIN 37 THERAPEUTIC INR RANGE: 2.0 - 3.0 DVT, Pulmonary embolus, prophylaxis against venous thrombosis or systemic embolization in high risk patients. 2.5 - 3.5 Mechanical heart valves 38 QUERY: IS THE PATIENT FASTING? Y QUERY: FASTING PROFILE INCLUDES CHOL, TRIG, HDL, + LDL 39 QUERY: Anticoagulant Therapy? QUERY: Date of Last Dose: QUERY: Time of Last Dose: 40 QUERY: Anticoagulant Therapy? QUERY: Date of Last Dose: QUERY: Time of Last Dose: 41 THERAPEUTIC INR RANGE: 2.0 - 3.0 DVT, Pulmonary embolus, prophylaxis against venous thrombosis or systemic embolization in high risk patients. 2.5 - 3.5 Mechanical heart valves 42 THERAPEUTIC INR RANGE: 2.0 - 3.0 DVT, Pulmonary embolus, prophylaxis against venous thrombosis or systemic embolization in high risk patients. 2.5 - 3.5 Mechanical heart valves 43 THERAPEUTIC INR RANGE: 2.0 - 3.0 DVT, Pulmonary embolus, prophylaxis against venous thrombosis or systemic embolization in high risk patients. 2.5 - 3.5 Mechanical heart valves 44 Note: Persistent reduction for 3 months or more in an eGFR <60 mL/min/1.73 m2 defines CKD. Patients with eGFR values >/=60 mL/min/1.73 m2 may also have CKD if evidence of persistent proteinuria is present. The original MDRD equation for estimated GFR is not valid for patients less than 18 years of age. Additional information may be found at www.kdoqi.org. 45 08/22/09 KAYY NR FLAG 46 THERAPEUTIC INR RANGE: 2.0 - 3.0 DVT, Pulmonary embolus, prophylaxis against venous thrombosis or systemic embolization in high risk patients. 2.5 - 3.5 Mechanical heart valves 47 Current guidelines recommend a treatment goal of <7% for diabetic patients. This method will measure glycosylated hemoglobin variants, HbS, HbG, HbH, HbWayne, HbC, HbE, etc. Other hemoglobin- opathies may give incorrect results with this test. Note change in expected values for healthy individuals 48 Note: Persistent reduction for 3 months or more in an eGFR <60 mL/min/1.73 m2 defines CKD. Patients with eGFR values >/=60 mL/min/1.73 m2 may also have CKD if evidence of persistent proteinuria is present. The original MDRD equation for estimated GFR is not valid for patients less than 18 years of age. Additional information may be found at www.kdoqi.org. 49 Specimen: [id number] - TEST: PT CALLED PRT TO NIC SalgadoAlcon AT 1002 by [facility] TEST: PT QUERY: Anticoagulant Therapy? QUERY: Date of Last Dose: QUERY: Time of Last Dose: 50 THERAPEUTIC INR RANGE: 2.0 - 3.0 DVT, Pulmonary embolus, prophylaxis against venous thrombosis or systemic embolization in high risk patients. 2.5 - 3.5 Mechanical heart valves 51 Specimen: [id number] - TEST: PT CALLED PT TO BONITA Ruddy AT 1016 07/11/09 by [facility].VLM TEST: PT QUERY: Anticoagulant Therapy? QUERY: Date of Last Dose: QUERY: Time of Last Dose: 52 THERAPEUTIC INR RANGE: 2.0 - 3.0 DVT, Pulmonary embolus, prophylaxis against venous thrombosis or systemic embolization in high risk patients. 2.5 - 3.5 Mechanical heart valves 53 THERAPEUTIC INR RANGE: 2.0 - 3.0 DVT, Pulmonary embolus, prophylaxis against venous thrombosis or systemic embolization in high risk patients. 2.5 - 3.5 Mechanical heart valves 54 Specimen: [id number] - TEST: PT FAX TODAY TO ZARA PANG AT [phone] REPORT FAXED PER REQUEST- 06/20/09,([facility]) TEST: PT QUERY: Anticoagulant Therapy? QUERY: Date of Last Dose: QUERY: Time of Last Dose: 55 THERAPEUTIC INR RANGE: 2.0 - 3.0 DVT, Pulmonary embolus, prophylaxis against venous thrombosis or systemic embolization in high risk patients. 2.5 - 3.5 Mechanical heart valves Procedures Date Code Description Status 10/09/2018 53532 EKG-Tracing And Report Completed 09/23/2018 05803 Colonoscopy With Bipolar Probe Completed 06/04/2018 07073 EKG-Tracing And Report Completed 12/07/2016 97227 EKG-Tracing And Report Completed 08/29/2015 41907 Stress Test Interpre And Report Only Completed 08/29/2015 25772 Stress Test Physician Super Only Completed 08/29/2015 41429 Stress Test Physician Super Only Completed 08/29/2015 90026 Myocardial Imaging Tomographic Multiple Study AT Rest Or Completed Stress 08/24/2015 92250 EKG-Tracing And Report Completed 02/18/2015 38778 EKG-Tracing And Report Completed 01/19/2014 42645 EKG-Tracing And Report Completed 10/20/2012 23457 Stress Test Interpre And Report Only Completed 10/20/2012 83808 Stress Test Physician Super Only Completed 10/20/2012 16474 Stress Test Physician Super Only Completed 10/20/2012 07918 Myocardial Imaging Tomographic Multiple Study AT Rest Or Completed Stress 06/30/2012 60977 EKG-Tracing And Report Completed 02/06/2012 44206 EKG-Tracing And Report Completed 10/19/2010 74222 Radiology, Knee 3 Views Completed 09/16/2009 42045 EKG-Tracing And Report Completed 09/01/2009 53294 Stress Test Interpre And Report Only Completed 08/16/2009 82671 EKG-Tracing And Report Completed 08/16/2009 26509 EKG-Tracing And Report Completed 08/11/2009 22976 Radiology, Finger(S), Two Views Completed 06/29/2009 35110 EKG-Tracing And Report Completed 06/15/2009 54765 Transesophageal Echocardiogram Completed 06/13/2009 49338 Echocardiogram Complete Completed 06/13/2009 50619 EKG Interpretation And Report Only Completed 01/14/2009 43247 Radiology, Shoulder: Two Views (Sso) Completed 01/14/2009 52638 Asp./Injection major joint Completed 11/08/2006 83982 Remove Impacted Cerumen Completed Encounters Type Date Location Provider Dx Diagnosis Office Visit 11/26/2018 Cardiology Office Bonita Armendariz I48.2 Chronic atrial 3:20p Massiel, ROSIE, fibrillation TEST CONDUCTOR I10 Essential (primary) hypertension Office Visit 10/09/2018 Cardiology Attila Rosales I48.2 Chronic atrial 3:20p Office M., M.D., FACC fibrillation 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 Office Visit 06/04/2018 Cardiology Bonita Armendariz I48.2 Chronic atrial 10:00a Office ROSIE Rankin, fibrillation TEST CONDUCTOR G45.9 Transient cerebral ischemic attack, unspecified I10 Essential (primary) hypertension Office Visit 06/10/2017 Cardiology Bonita Armendariz I48.2 Chronic atrial 10:40a Office ROSIE Rankin, fibrillation TEST CONDUCTOR G45.9 Transient cerebral ischemic attack, unspecified I10 Essential (primary) hypertension Office Visit 12/07/2016 Cardiology Attila Rosales I48.2 Chronic atrial 10:40a Office Stanley Hanna, FACC fibrillation G45.9 Transient cerebral ischemic attack, unspecified Office Visit 04/23/2016 Cardiology Attila Rosales I48.2 Chronic atrial 3:20p Office Stanley Hanna, [facility] fibrillation R53.83 Other fatigue R52 Pain, unspecified Office Visit 09/05/2015 9:30a Cardiology Office Attila Rosales R06.02 Shortness michael Hanna M.D., [facility] breath I48.2 Chronic atrial fibrillation Office Visit 08/24/2015 11:00a Cardiology Office Bonita Armendariz R06.02 Shortkrystal of ROSIE Rankin, breath TEST CONDUCTOR I48.2 Chronic atrial fibrillation E78.5 Hyperlipidemia, unspecified G45.9 Transient cerebral ischemic attack, unspecified Z01.810 Encounter for preprocedural cardiovascular examination Office Visit 02/18/2015 Cardiology Attila Rosales 427.31 Atrial 1:40p Office Stanley Hanna, FACC Fibrillation Office Visit 01/19/2014 Cardiology Attila Rosales 427.31 Atrial 3:00p Office Stanley Hanna, FACC Fibrillation 272.4 Hyperlipidemia Other Unspec 435.9 TIA Ischemia Cerebral Transient Unspec Office Visit 06/30/2012 Cardiology Bonita Armendariz 427.31 Atrial 11:30a Office ROSIE Rankin, Fibrillation TEST CONDUCTOR 272.4 Hyperlipidemia Other Unspec 435.9 TIA Ischemia Cerebral Transient Unspec V72.81 Examination Preoperative Cardiovascular Office Visit 02/06/2012 Cardiology Attila Rosales 427.31 Atrial 11:00a Office M., M.D., FACC Fibrillation 272.4 Hyperlipidemia Other Unspec Office Visit 01/29/2011 Cardiology Attila Rosales 427.31 Atrial 1:00p Office Stanley Hanna, FACC Fibrillation 272.4 Hyperlipidemia Other Unspec 435.9 TIA Ischemia Cerebral Transient Unspec 786.59 Pain Chest Other Office Visit 10/19/2010 Orthopaedic Sean Martines 715.16 Osteoarthrosis 10:30a Office MD Bea, FACS Localized Prim Lower Leg 717.7 Chondromalacia Of Patella Office Visit 07/25/2010 Cardiology Attila Rosales 427.31 Atrial 10:20a Office Stanley Hanna, FACC Fibrillation 272.4 Hyperlipidemia Other Unspec 435.9 TIA Ischemia Cerebral Transient Unspec 786.59 Pain Chest Other Office Visit 04/17/2010 Cardiology Attila Rosales 427.31 Atrial 4:08p Office Stanley Hanna, FACC Fibrillation V58.61 Anticoagulants [employer] (Current) Use Encounter Office Visit 04/13/2010 Cardiology Attila Rosales 427.31 Atrial 1:00p Office Stanley Hanna, FACC Fibrillation 401.1 Hypertension Benign 272.4 Hyperlipidemia Other Unspec 435.9 TIA Ischemia Cerebral Transient Unspec Office Visit 10/13/2009 Cardiology Bonita Armendariz 427.31 Atrial 1:10p Office ROSIE Rankin, Fibrillation TEST CONDUCTOR 401.1 Hypertension Benign 272.4 Hyperlipidemia Other Unspec Office Visit 09/16/2009 1:45p Cardiology Office Attila Rosales 435.9 TIA Miri Hanna M.D., FACC Cerebral Transient Unspec 427.31 Atrial Fibrillation Office Visit 08/25/2009 2:45p Orthopaedic Office Day Felder 719.44 Pain Joint Aubrey Hopkins MD Office Visit 08/16/2009 9:10a Cardiology Office Bonita Armendariz 435.9 TIA Ischemia Simonetta, Cerebral MSN, TEST CONDUCTOR Transient Unspec 427.31 Atrial Fibrillation 780.79 Malaise And Fatigue Other 272.4 Hyperlipidemia Other Unspec Office Visit 08/11/2009 9:15a Orthopaedic Office Day Felder 719.44 Pain Toan Hopkins MD Hand 726.10 Bursae & Tendon Disorders Shoulder Region Unspec 736.22 Deformity [place] Office Visit 06/29/2009 Cardiology Attila Rosales 427.31 Atrial 11:40a Office Stanley Hanna, FACC Fibrillation 436 Cerebrovascular Disease Acute Ill-Defined 435.9 TIA Ischemia Cerebral Transient Unspec Office Visit 05/25/2009 9:15a Orthopaedic Office Day Felder 726.10 Bursae & Tendon MD Sandeep Disorders Shoulder Region Unspec Office Visit 01/14/2009 11:00a Orthopaedic Office Day Felder 719.41 Pain Joint MD Sandeep Shoulder Region 715.11 Osteoarthrosis Localized Prim Shoulder Region 726.10 Bursae & Tendon Disorders Shoulder Region Unspec Office Visit 11/08/2006 2:45p Operating Room Rory Montanez, 784.91 Postnasal Drip Stanley 380.4 Impacted Cerumen Plan of Treatment Future Appointment(s):05/22/2019 11:20 am - Attila Rosales M.D., [facility] at Cardiology [id number]/26/2018 - Bonita Armendariz, MSN, FNPI48.2 Chronic atrial fibrillationComments:No changes. Monitor.I10 Essential (primary) hypertensionComments:No changes.AllFollow up:Follow up visit in six months.
--- NOTE | 2018-12-25 15:53 | UC ---
Skin Complaint HPI - HPI Summary HPI Summary: 78 yo female presents with rash to b/l arms for the last 5 days. She tells me that about 5 days ago she developed a mild rash on her forearms that was itchy. Since that time the rash has spread up to her upper arms and is a lot more itchy. She has taken benadryl and applied lotion with no relief. She denies new detergents, soaps, or clothing. She does, however, attend a new gym over the last month and washes the equipment with an antibacterial spray - wonders if this is causing her rash. Denies difficulty breathing, SOB, chest pain, or recent illness. - History of Current Complaint Time Seen by Provider: 12/25/18 15:53 Stated Complaint: SKIN COMPLAINT Hx Obtained From: Patient Onset/Duration: Sudden Onset, Gradual Onset Onset Severity: Mild Current Severity: Mild Pain Intensity: 3 Pain Scale Used: 0-10 Numeric - Allergy/Home Medications Allergies/Adverse Reactions: Allergies Allergy/AdvReac Type Severity Reaction Status Date / Time Penicillins Allergy Unknown Verified 12/25/18 15:55 Reaction Details Sulfa (Sulfonamide Allergy Unknown Verified 12/25/18 15:55 Antibiotics) Reaction Details environmental, foods Allergy Unknown Uncoded 09/21/16 15:07 Reaction Details Home Medications: Home Medications Apixaban [Eliquis] 2.5 mg PO DAILY 12/25/18 [History Confirmed 12/25/18] Aspirin [Adult Aspirin] 81 mg PO DAILY 12/25/18 [History Confirmed 12/25/18] diphenhydrAMINE HCl [Diphenhydramine HCl] 25 mg PO DAILY 12/25/18 [History Confirmed 12/25/18] PMH/Surg Hx/FS Hx/Imm Hx Cardiovascular History: Hypertension, Congestive Heart Failure, Atrial Fibrillation - Surgical History Surgical History: Yes Surgery Procedure, Year, and Place: partial hysterectomy, back, L shoulder, R foot, right knee total arthroplasty - Family History Known Family History: Positive: Respiratory Disease - mother had COPD - Social History Lives: With Family Alcohol Use: Rare Substance Use Type: None Smoking Status (MU): Former Smoker When Did the Patient Quit Smoking/Using Tobacco: 1987 - Immunization History Most Recent Influenza Vaccination: 08/2016 Most Recent Pneumonia Vaccination: Fall 2015 Review of Systems All Other Systems Reviewed And Are Negative: Yes Constitutional: Positive: Negative Skin: Positive: Rash Respiratory: Positive: Negative Cardiovascular: Positive: Negative Gastrointestinal: Positive: Negative Neurological: Positive: Negative Psychological: Positive: Negative Physical Exam - Summary Physical Exam Summary: GENERAL: NAD. WDWN. No pain distress. SKIN: B/L forearms and upper arms with moderate dry skin, scaling, and excoriations. Scant urticaria. No open wounds, streaking, edema, or warmth. NECK: Supple. Nontender. No lymphadenopathy. CHEST: No accessory muscle use. Breathing comfortably and in no distress. CV: Pulses intact. Cap refill <2seconds NEURO: Alert. PSYCH: Age appropriate behavior. Triage Information Reviewed: Yes Vital Signs: Vital Signs: Temp Pulse Resp BP Pulse Ox 97.3 F 63 17 144/61 97 12/25/18 15:50 12/25/18 15:50 12/25/18 15:50 12/25/18 15:50 12/25/18 15:50 Vital Signs Reviewed: Yes Course/Dx - Course Course Of Treatment: Suspect contact dermatitis vs dyshidrotic eczema - Diagnoses Provider Diagnosis: Dyshidrotic eczema Discharge - Sign-Out/Discharge Documenting (check all that apply): Patient Departure All imaging exams completed and their final reports reviewed: No Studies - Discharge Plan Condition: Stable Disposition: HOME Prescriptions: predniSONE TAB* [Deltasone 20 MG TAB*] 40 mg PO DAILY #20 tab predniSONE TAB* [Deltasone 20 MG TAB*] 40 mg PO DAILY #10 tab Triamcinolone 0.1% CREAM (NF) [Kenalog 0.1% Cream (NF)] 1 applic TOPICAL BID #1 tube Triamcinolone 0.1% CREAM (NF) [Kenalog 0.1% Cream (NF)] 1 applic TOPICAL BID #1 applic Patient Education Materials: Contact Dermatitis (DC), Dyshidrotic Eczema (ED) Referrals: Ebony Abreu MD [Primary Care Provider] - Additional Instructions: If you develop a fever, shortness of breath, chest pain, new or worsening symptoms - please call your PCP or go to the ED. Your blood pressure was high at todays visit. Please see your primary provider within 4 weeks for recheck and re-evaluation. - Billing Disposition and Condition Condition: STABLE Disposition: Home - Attestation Statements Provider Attestation: Per institutional requirements, I have reviewed the chart, however, I was not consulted specifically or made aware of this patient by the midlevel provider. I did not personally evaluate, interact with , or disposition this patient.
[2018-12-25 15:59] VITALS: BP 144/61
== END 2018-12-25 16:07 | disposition home or self-care (01) ==
LOC: UCCORT 14:41
DX: L30.1 Dyshidrosis [pompholyx] (principal); Z88.0 Allergy status to penicillin; I11.0 Hypertensive heart disease with heart failure; I48.91 Unspecified atrial fibrillation; I50.9 Heart failure, unspecified; Z79.01 Long term (current) use of anticoagulants; Z91.018 Allergy to other foods; Z91.09 Other allergy status, other than to drugs and biological substances; Z88.2 Allergy status to sulfonamides; Z79.82 Long term (current) use of aspirin
CPT/HCPCS: 99212; G0463

== ENCOUNTER 2019-04-19 10:18 | Emergency (ER) | payer MEDICARE ==
[2019-04-19 10:51] VITALS: BP 139/70
--- NOTE | 2019-04-19 11:30 | UC ---
Throat Pain/Nasal Juventino HPI - HPI Summary HPI Summary: Patient started developing a sore throat and cough on , 3 days ago. She states she had a leftover Z-Emmanuel at home so she started that yesterday but she is no better today. Her only chronic illness is atrial fibrillation for which she takes a blood thinner. CXR: FINDINGS: The heart and mediastinum are normal in size and contour. There is coarse calcification overlying the arch of the aorta similar appearance to the prior chest x-ray. The lungs are grossly clear. There is no evidence of large pleural effusion. Visualized bones are normal for the patient's age. There is no radiographic evidence of free air beneath the diaphragm IMPRESSION: No radiographic evidence of acute cardiopulmonary disease. - History of Current Complaint Chief Complaint: UCGeneralIllness Stated Complaint: SORE THROAT, CHEST CONGESTION Time Seen by Provider: 04/19/19 11:29 Hx Obtained From: Patient ?: No Onset/Duration: Gradual Onset, Other - Started on 3 days ago. Severity: Mild Pain Intensity: 6 Cough: Nonproductive Associated Signs & Symptoms: Positive: Negative - Allergies/Home Medications Allergies/Adverse Reactions: Allergies Allergy/AdvReac Type Severity Reaction Status Date / Time Penicillins Allergy Unknown Verified 04/19/19 10:41 Reaction Details Sulfa (Sulfonamide Allergy Unknown Verified 04/19/19 10:41 Antibiotics) Reaction Details environmental, foods Allergy Unknown Uncoded 04/19/19 10:41 Reaction Details Home Medications: Home Medications Acetaminophen [Tylenol Extra Strength] 500 mg PO Q6H PRN 04/19/19 [History Confirmed 04/19/19] Azithromycin 250 mg PO DAILY 04/19/19 [History Confirmed 04/19/19] Metoprolol Tartrate TAB* [Lopressor TAB*] 50 mg PO BEDTIME 04/19/19 [History Confirmed 04/19/19] PMH/Surg Hx/FS Hx/Imm Hx Previously Healthy: Yes Cardiovascular History: Atrial Fibrillation - Surgical History Surgical History: Yes Surgery Procedure, Year, and Place: partial hysterectomy, back, L shoulder, R foot, right knee total arthroplasty - Family History Known Family History: Positive: Respiratory Disease - mother had COPD - Social History Occupation: Retired Alcohol Use: Rare Substance Use Type: None Smoking Status (MU): Former Smoker When Did the Patient Quit Smoking/Using Tobacco: 1987 - Immunization History Most Recent Influenza Vaccination: 08/2016 Most Recent Pneumonia Vaccination: Fall 2015 Review of Systems All Other Systems Reviewed And Are Negative: Yes ENT: Positive: Sore Throat - Sore throat for 3 days. Respiratory: Positive: Shortness Of Breath, Cough - Nonproductive cough today. Patient started Z-Emmanuel yesterday. Is Patient Immunocompromised?: No Physical Exam Triage Information Reviewed: Yes Appearance: Well-Appearing, No Pain Distress, Well-Nourished Vital Signs: Initial Vital Signs Temp 97 F 04/19/19 10:47 Pulse 95 04/19/19 10:47 Resp 20 04/19/19 10:47 BP 139/70 04/19/19 10:47 Pulse Ox 95 04/19/19 10:47 Vital Signs Reviewed: Yes Eyes: Positive: Conjunctiva Clear ENT: Positive: Hearing grossly normal, Pharynx normal, TMs normal, Uvula midline Neck: Positive: Supple, Nontender, No Lymphadenopathy Respiratory: Positive: No respiratory distress, No accessory muscle use, Rhonchi , Wheezing - Mildly scattered rhonchi and wheezing with forced expiration. Cardiovascular: Positive: RRR, No Murmur, Pulses Normal, Brisk Capillary Refill Musculoskeletal Exam: Normal Musculoskeletal: Positive: No Edema, Other: - Tender, Good Peripheral Pulses Neuro Sensation Capillary Refill Neurological Exam: Normal Psychological Exam: Normal Skin Exam: Normal Throat Pain/Nasal Course/Dx - Course Course Of Treatment: Chest x-ray:FINDINGS: The heart and mediastinum are normal in size and contour. There is coarse calcification overlying the arch of the aorta similar appearance to the prior chest x-ray. The lungs are grossly clear. There is no evidence of large pleural effusion. Visualized bones are normal for the patient's age. There is no radiographic evidence of free air beneath the diaphragm IMPRESSION: No radiographic evidence of acute cardiopulmonary disease. Because of the patient's a-fib, I do not want to give her and albuterol treatment. I am going to start her on Prednisone 40 mg daily for 5 days with a follow up to her PCP if no improvement in 3-4 days. Pt is to continue the Z-emmanuel she started - Differential Dx/Diagnosis Provider Diagnosis: Bronchitis Discharge - Sign-Out/Discharge Documenting (check all that apply): Patient Departure All imaging exams completed and their final reports reviewed: Yes - Discharge Plan Condition: Fair Disposition: HOME Prescriptions: predniSONE [Prednisone 20 MG TAB] 40 mg PO DAILY 5 Days #10 tablet Patient Education Materials: Acute Bronchitis (ED) Referrals: Ebony Abreu MD [Primary Care Provider] - Additional Instructions: Follow up with Dr. Abreu in 3-4 days if no improvement. - Billing Disposition and Condition Condition: FAIR Disposition: Home - Attestation Statements Provider Attestation: Per institutional requirements, I have reviewed the chart, however, I was not consulted specifically or made aware of this patient by the midlevel provider. I did not personally evaluate, interact with , or disposition this patient.
== END 2019-04-19 12:23 | disposition home or self-care (01) ==
LOC: UCCORT 10:18
DX: J40 Bronchitis, not specified as acute or chronic (principal); I48.91 Unspecified atrial fibrillation; Z79.01 Long term (current) use of anticoagulants; Z88.0 Allergy status to penicillin; Z88.2 Allergy status to sulfonamides; Z91.018 Allergy to other foods; Z87.891 Personal history of nicotine dependence
CPT/HCPCS: 71046; 99212; G0463